=== PATIENT | female | born 1930 | race Caucasian/White ===

== ENCOUNTER 2017-10-27 06:41 | Emergency (ER) | payer MEDICARE, OTHER ==
--- NOTE | 2017-10-27 07:35 | ER Document Report ---
ED General - General Chief Complaint: Wrist Injury Stated Complaint: FALL, WRIST INJURY Time Seen by Provider: 10/27/17 07:32 Mode of Arrival: Ambulatory Information source: Patient TRAVEL OUTSIDE OF THE [place] IN LAST 30 DAYS: No - HPI Notes: 87-year-old female presents today with complaints of left wrist pain after she fell with an extended wrist x 3 hours ago. Denies any head trauma or change in level consciousness. Worse with time, nothing makes better. Denies any numbness or tingling in bilateral upper extremities. Has not tried any over-the -counter medications. Denies any deformity. Pain is 4 out of 10, throbbing achy. Has not tried any heat or icing. Denies fevers, chills, chest pain, palpitations, shortness of breath, hematuria,blurred vision, double vision, loss of vision, speech changes, LH, dizziness, syncope, headaches, weakness, bowel or bladder dysfunction, saddle anesthesia, numbness or tingling in bilateral upper or lower extremities equally, muscle paralysis, weakness in bilateral upper or lower extremities equally or rash. Denies IV drug use. - Related Data Allergies/Adverse Reactions: Sulfa (Sulfonamide Antibiotics) Allergy (Intermediate, Verified 10/27/17 06:42) felipe Past Medical History - General Information source: Patient - Social History Smoking Status: Never Smoker Chew tobacco use (# tins/day): No Frequency of alcohol use: None Drug Abuse: None Family History: Reviewed & Not Pertinent Patient has suicidal ideation: No Patient has homicidal ideation: No - Past Medical History Cardiac Medical History: Denies: Hx Coronary Artery Disease, Hx Heart Attack, Hx Hypertension Pulmonary Medical History: Denies: Hx Asthma, Hx Bronchitis, Hx COPD, Hx Pneumonia Neurological Medical History: Denies: Hx Cerebrovascular Accident, Hx Seizures Renal/ Medical History: Denies: Hx Peritoneal Dialysis Musculoskeltal Medical History: Denies Hx Arthritis - Immunizations Hx Diphtheria, Pertussis, Tetanus Vaccination: No Review of Systems - Review of Systems Constitutional: No symptoms reported EENT: No symptoms reported Cardiovascular: No symptoms reported, Paroxysmal Nocturnal Dysp Respiratory: No symptoms reported Gastrointestinal: No symptoms reported Genitourinary: No symptoms reported Female Genitourinary: No symptoms reported Musculoskeletal: See HPI Skin: No symptoms reported Hematologic/Lymphatic: No symptoms reported Neurological/Psychological: No symptoms reported Physical Exam - Vital signs Vitals: Temp Pulse Resp BP Pulse Ox 97.9 F 63 16 165/81 H 97 10/27/17 06:47 10/27/17 06:47 10/27/17 06:47 10/27/17 06:47 10/27/17 06:47 - Extremities General upper extremity: Normal inspection General lower extremity: Normal inspection Shoulder: Normal Elbow: Normal Forearm: Normal Wrist: Tender - on left lateral apsect of wrist, pain with inversion and eversion. No pain with flexion extension of wrists. Negative snuffbox tenderness on left.t. Normal opposition, abduction, abduction, flexion, extension of all fingers. Fire Control System Installer +2 in bilateral upper extremities equally. Cap refill <3. Radial pulses +2 in bilateral upper extremities equally. Full motor and sensory function of bilateral upper extremities equally and bilaterally. DTR +2 in bilateral upper extremities equally. No open wounds or drainage. Hand: Normal Course - Re-evaluation Re-evalutation: 10/27/17 17:07 The 87-year-old female with wrist pain status post fall, negative for any acute fractures. Advised patient to follow-up with learning technologies specialist within 1 week for repeat x-ray to evaluate for any occult fractures. Cockup strict splint placed. Advised to follow Rice therapy, follow-up with learning technologies specialist within 1 week. Return to ER symptoms become worse. All questions and concerns answered by this provider. She verbalized understanding plan of care and agree with plan of care. patient discharged home - Vital Signs Vital signs: Temp Pulse Resp BP Pulse Ox 97.9 F 62 18 149/78 H 97 10/27/17 06:47 10/27/17 08:47 10/27/17 08:47 10/27/17 08:47 10/27/17 08:47 Discharge - Discharge Clinical Impression: Left wrist sprain Qualifiers: Encounter type: initial encounter Qualified Code(s): S63.502A - Unspecified sprain of left wrist, initial encounter Condition: Good Disposition: HOME, SELF-CARE Instructions: Wrist Sprain ([facility]) Additional Instructions: Sprain Your injury is a sprain. A sprain results from stretching or tearing of the ligaments, usually from a twisting injury. The ligaments will require time and protection in order to heal properly. Many sprains are quite disabling and should be taken seriously. The usual initial treatment of sprains is cold packs, elevation, and rest of the injured area. Your physician has assessed the seriousness of your ligament injury, and has outlined a treatment plan. Understand that this treatment may change, depending on how you progress. If a re-examination was recommended, it is important that you follow up as instructed. Call the doctor any time if there is severe pain, numbness, or loss of function in the injured area. Please follow up with the [facility] [address] [place] [id number] X-ray of your left wrist was negative for any acute fractures or dislocations. If you still experience pain after 1 week, he may need a repeat wrist x-ray to evaluate for an occult fracture. Rice therapy. We are cock up splint as directed. Follow-up with learning technologies specialist within 1 week. Referral was given. Follow-up with primary care provider within 3 days. Switch to heat tomorrow 20 minutes on 20 minutes off several times a day. Take over-the- counter Tylenol as needed. Return to the ER symptoms become worse. Return immediately for any new or worsening symptoms. Follow up with primary care provider, call tomorrow to make followup appointment. Referrals: RONEY CARSON MD [ACTIVE STAFF] - Follow up as needed
--- NOTE | 2017-10-27 08:04 | RADIOLOGY REPORT (SQ) ---
EXAM DESCRIPTION: WRIST LEFT 3 VIEWS COMPLETED DATE/TIME: 10/27/2017 7:14 am REASON FOR STUDY: fall/injury COMPARISON: None. NUMBER OF VIEWS: Three views. TECHNIQUE: AP, lateral, and oblique radiographic images acquired of the left wrist. LIMITATIONS: None. FINDINGS: MINERALIZATION: Osteopenia. BONES: No acute fracture or dislocation. No worrisome bone lesions. Normal alignment. SOFT TISSUES: No soft tissue swelling. No foreign body. OTHER: No other significant finding. IMPRESSION: NO RADIOGRAPHIC EVIDENCE OF ACUTE INJURY. TECHNICAL DOCUMENTATION: JOB ID: [id number] [employer]- All Rights Reserved Reading location - IP/workstation name: [email or web address]
[2017-10-27 08:48] VITALS: BP 149/78
== END 2017-10-27 08:48 | disposition home or self-care (01) ==
LOC: ER 06:41
DX: S63.502A Unspecified sprain of left wrist, initial encounter (principal); M25.532 Pain in left wrist; W19.XXXA Unspecified fall, initial encounter; Z88.2 Allergy status to sulfonamides
CPT/HCPCS: 99283; 73110; L3908

== ENCOUNTER 2019-04-15 09:35 | Emergency (ER) | payer MEDICARE, OTHER ==
[2019-04-15 09:41] VITALS: BP 177/65
--- NOTE | 2019-04-15 10:39 | ER Document Report ---
HPI - HPI Time Seen by Provider: 04/15/19 09:50 Pain Level: 1 Context: Patient is a 89-year-old female with no past medical history who presents to the emergency department with the chief complaint of foot pain. Patient states that on Tuesday she stepped on a tigist nail that was on her back porch. Patient states at the time she was wearing a rubber shoe and that the nail went through the shoe and into her foot. Patient reports she immediately pulled the nail out. Patient states she was seen at the urgent care that day and was given a tetanus shot. Patient states she was also started on clindamycin 300 mg 3 times per day for 7 days. Patient reports her first dose of this medication was on Tuesday. Patient reports slight tenderness to the bottom of the foot near the puncture wound. Patient states she has noticed some redness to the top of the foot and swelling. Patient states the redness has not gotten worse since last night. Patient was concerned that she may have an infection so she wanted to get checked out today. Patient denies fever. Patient states she has been elevating the area and staying off of the foot as much as possible but that she is very active. - CONSTITUTIONAL Constitutional: DENIES: Fever, Chills - EENT EENT: DENIES: Sore Throat, Ear Pain, Eye problems - NEURO Neurology: DENIES: Headache, Weakness, Vision blurred, Dizzinesss / Vertigo - GASTROINTESTINAL Gastrointestinal: DENIES: Abdominal Pain, Black / Bloody Stools - URINARY Urinary: DENIES: Dysuria, Urgency, Frequency - MUSCULOSKELETAL Musculoskeletal: REPORTS: Extremity pain - right foot Past Medical History - General Information source: Patient - Social History Smoking Status: Never Smoker Chew tobacco use (# tins/day): No Frequency of alcohol use: None Drug Abuse: None Lives with: Alone Family History: Reviewed & Not Pertinent Patient has suicidal ideation: No Patient has homicidal ideation: No - Past Medical History Cardiac Medical History: Reports: None Denies: Hx Coronary Artery Disease, Hx Heart Attack, Hx Hypertension Pulmonary Medical History: Reports: None Denies: Hx Asthma, Hx Bronchitis, Hx COPD, Hx Pneumonia EENT Medical History: Reports: None Neurological Medical History: Reports: None. Denies: Hx Cerebrovascular Accident, Hx Seizures Endocrine Medical History: Reports: None Renal/ Medical History: Reports: None. Denies: Hx Peritoneal Dialysis Malignancy Medical History: Reports: None GI Medical History: Reports: None Musculoskeletal Medical History: Reports None, Denies Hx Arthritis Skin Medical History: Reports None Psychiatric Medical History: Reports: None Traumatic Medical History: Reports: None Infectious Medical History: Reports: None Surgical Hx: Negative - Immunizations Hx Diphtheria, Pertussis, Tetanus Vaccination: No Vertical Provider Document - CONSTITUTIONAL Agree With Documented VS: Yes Exam Limitations: No Limitations General Appearance: No Apparent Distress - INFECTION CONTROL TRAVEL OUTSIDE OF THE [place] IN LAST 30 DAYS: No - HEENT HEENT: Atraumatic, Normocephalic, PERRLA - NECK Neck: Normal Inspection - RESPIRATORY Respiratory: Breath Sounds Normal, No Respiratory Distress - CARDIOVASCULAR Cardiovascular: Regular Rate, Regular Rhythm - GI/ABDOMEN Gastrointestinal: Abdomen Soft, Abdomen Non-Tender, Normal Bowel Sounds - MUSCULOSKELETAL/EXTREMETIES Notes: Patient has a healing puncture wound noted to the plantar aspect of the right lateral foot. There is some surrounding edema. The wound is closed. There is no palpable abscess at this time. Patient does have some erythema noted around the puncture site and to the top of the foot that does not extend into the ankle. Patient is able to ambulate using her cane. - NEURO Level of Consciousness: Awake, Alert, Appropriate - DERM Integumentary: Warm Course - Re-evaluation Re-evalutation: 04/15/19 10:38 We will obtain an x-ray to make sure there is no foreign body in the foot. Patient instructed to keep her foot elevated. 04/15/19 11:17 I did speak with my supervising attending Dr. Gee who recommends taking the patient off of clindamycin and starting her on a low-dose quinolone. He recommends Cipro 250 mg p.o. twice daily for 7 days. He does state that the patient needs close follow-up as she is at risk for infection. Patient he will follow-up here in the emergency department in a few days or orthopedics. - Vital Signs Vital signs: Temp Pulse Resp BP Pulse Ox 97.7 F 84 16 177/65 H 93 04/15/19 09:39 04/15/19 09:39 04/15/19 09:39 04/15/19 09:39 04/15/19 09:39 - Diagnostic Test Radiology reviewed: Reports reviewed Radiology results interpreted by me: 04/15/19 11:11 Foot X-Ray 04/15/19 10:19 IMPRESSION: NORMAL STUDY. Discharge - Discharge Clinical Impression: Puncture wound Condition: Stable Disposition: HOME, SELF-CARE Additional Instructions: Today he was seen in the emergency department for a puncture wound that you obtained on Tuesday. We did obtain an x-ray which did not show any bony abnormality such as a fracture or dislocation or foreign body. Please monitor for signs of infection such as redness that increases or streaks up the leg, increased swelling, warmth or any drainage from the wound. Please seek medical attention promptly if you do develop any of the symptoms. Please follow-up within the next 2 to 3 days with either an orthopedic, your primary care physician or if you do not have access to either 1 of these return to the emergency department. After a puncture wound, especially from a resting nail you are at increased risk for infection. Please stop taking the clindamycin. I have prescribed you a new antibiotic called ciprofloxacin. Please take this twice a day for the next week. Common side effects of this antibiotic include nausea and diarrhea. Please elevate the foot as much as possible to help with swelling. Please take Tylenol as needed for pain. Puncture Wound You have a puncture wound. Because these wounds often penetrate deeply beneath the skin, you must observe them carefully for complications. The wound has been examined for retained foreign material and for damage to tendons and ne rves. The area should be rested and elevated for 24 hours. Then you can use the injured part -- if moving it is painfree. Punctures of the hand or foot may require splinting or crutches. The dressing should be changed daily until the wound is healed. Watch for signs of infection. Call the doctor immediately if redness, swelling, warmth, increasing pain, or wound drainage occur. If you develop numbness, persistent bleeding, or inability to move the injured area, please return for prompt re-evaluation. Ciprofloxacin You have been given an antibacterial agent, ciprofloxacin (Cipro). This medicine is not related to the penicillins, sulfas, cephalosporins, or tetracyclines. It is often given to patients who are allergic to these drugs. It has been chosen for you either because other drugs are not appropriate, or because of the nature of your problem. Cipro should not be taken with antacids, as these can decrease its effectiveness. It can be taken without regard to meals. CIPRO SHOULD NOT BE TAKEN BY CHILDREN, NURSING WOMEN, OR WOMEN. Although Cipro is usually well-tolerated, common side effects can include nausea and diarrhea. Contact your doctor if you experience any unusual symptoms while on this medication, such as joint pain or swelling, shortness of breath, wheezing, faintness, or hives. Prescriptions: Ciprofloxacin HCl [Cipro 250 mg Tablet] 1 tab PO BID 7 Days #14 tab Referrals: ZANE ADAMS DO [ACTIVE STAFF] - Follow up as needed BYRON CHAUDHRY MD [ACTIVE STAFF] - Follow up as needed CONCEPCION GALLAGHER JR, DO [ACTIVE PROVISIONAL STAFF] - Follow up as needed
--- NOTE | 2019-04-15 11:10 | RADIOLOGY REPORT (SQ) ---
EXAM DESCRIPTION: FOOT RIGHT COMPLETE COMPLETED DATE/TIME: 04/15/2019 10:55 am REASON FOR STUDY: stepped on nail tuesday, r/o foreign body COMPARISON: None. NUMBER OF VIEWS: Three views right foot. LIMITATIONS: None. FINDINGS: Osteopenic. No fracture. No radiopaque foreign body. Soft tissues within normal limits. OTHER: No other significant finding. IMPRESSION: NORMAL STUDY. TECHNICAL DOCUMENTATION: JOB ID: [id number] Reading location - IP/workstation name: [email or web address]
== END 2019-04-15 11:46 | disposition home or self-care (01) ==
LOC: ER 09:35
DX: S91.331A Puncture wound without foreign body, right foot, initial encounter (principal); W45.0XXA Nail entering through skin, initial encounter
CPT/HCPCS: 99283